=== PATIENT | female | born 1990 | race Caucasian/White ===

== ENCOUNTER → 2024-11-29 11:45 | Outpatient (BNVA) | payer OTHER, SELFPAY | PROVIDERS: Referring Provider Family Medicine; Visit Provider Internal Medicine Rheumatology | DX: M47.817 Spondylosis without myelopathy or radiculopathy, lumbosacral region (principal); M25.50 Pain in unspecified joint; M25.559 Pain in unspecified hip | CPT/HCPCS: 36415; 72100; 72170; 80076; 81001; 82306; 82565; 82570; 83520; 84156; 85025; 85651; 86140; 86200; 86431; 86480; 86704; 86803; 86812; 87340 ==

== ENCOUNTER 2024-12-26 10:49 | Outpatient (CLI) | payer OTHER, SELFPAY ==
--- NOTE | 2024-12-26 11:00 | MR_ITS ---
WS: [id number] MRI LUMBAR SPINE NONCONTRAST HISTORY: M54.16 - Radiculopathy, lumbar region COMPARISON: None available. TECHNIQUE: Sagittal and axial multisequence imaging is submitted. Normal lumbar alignment with no compression fractures or marrow edema. Disc spaces and vertebral body heights are well-preserved. Conus terminates normally at L1-2 disc level. L1-L2: Normal. L2-L3: No stenosis. No disc protrusion. RIGHT foraminal nerve root sleeve diverticulum. L3-L4: No stenosis or disc protrusion. Very small bilateral nerve root sleeve diverticula. L4-L5: Mild disc bulging with ligamentum flavum and facet arthritis. There is mild disc encroachment upon the traversing L5 nerve roots. Mild facet arthritis. Mild subarticular recess narrowing. L5-S1: Mild annular disc bulge with a tiny central disc protrusion. There is mild disc contact on the S1 nerve roots, bilateral. No foraminal stenosis. Paravertebral soft tissues are negative. MR/MR lumbar spine wo con* [id number] IMPRESSION: 1. No high-grade central or foraminal stenosis. 2. L4-5: Mild disc encroachment upon the traversing L5 nerve roots with narrow ing of the subarticular recesses. 3. L5-S1: Small central disc protrusion with contact on the S1 nerve roots. No stenosis.
== END 2024-12-26 10:50 | disposition home or self-care (01) ==
PROVIDERS: PCP Family Medicine; Visit Provider Anesthesiology Pain Medicine
DX: M54.16 Radiculopathy, lumbar region (principal); M51.370 Other intervertebral disc degeneration, lumbosacral region with discogenic back pain only
CPT/HCPCS: 72148

== ENCOUNTER → 2025-01-14 09:05 | Outpatient (BNVA) | payer OTHER, SELFPAY | PROVIDERS: PCP Family Medicine; Visit Provider Anesthesiology Pain Medicine | DX: Z79.899 Other long term (current) drug therapy (principal) | CPT/HCPCS: 36415; 80076; 82565; 85025; 85651; 86140 ==

== ENCOUNTER 2025-02-05 09:26 | Emergency (ER) | payer OTHER, SELFPAY ==
--- OUTSIDE RECORDS SUMMARY | 2025-02-05 09:44 | XMS_ITS | Clinical Summary ---
Author Organization [facility] Address [address] Attn: Epic Prelude ADT CREPRADIP ALVARENGA [place]UCK [address] Care Team Providers Care Border Measurer And Cutter Name Role Phone Nader Zacarias MD Primary Care Provider [phone] Allergies Active Allergy Reactions Criticality Noted Date Comments Kiwi Hives,Swelling High 01/28/2009 Morphine Hives,Itching,Fever High 07/21/2018 Sulfamethoxazole-Trimethoprim Hives High 2020 Medications BIOTIN ORAL Take by mouth. Act yamilka docosahexaenoic acid/epa (FISH OIL ORAL) Take by mouth. Activ e oxyCODONE-acetam inophen (Percocet) 5-325 mg tabletIndication s:Acute pain of right shoulder Take 1 Tablet by mouth every 4 hours as needed for Pain, Mild or Pain, Moderate. Max Daily Amount: 6 Tablets 42 Tablet 07/20/2024 12:24 PM OFFICE TECHNOLOGY INSTRUCTOR 5 Active Additional Information Patient not taking.Reported on 11/23/2024 predniSONE (DELTASONE) 5 mg tabletIndication s:Other forms of systemic lupus erythematosus, unspecified organ involvement status (CMS/HCC) 20mg x3days, 15mg x3days, 10mg x3days, 5mg x3days 30 Tablet 5 Active Additional Information Patient not taking.Reported on 11/23/2024 Benlysta 200 mg/mL Auto-InjectorInd ications:Other forms of systemic lupus erythematosus, unspecified organ involvement status (CMS/HCC) INJECT 200MG UNDER THE SKIN EVERY 7 DAYS 12 mL 5 Active Active Problems Problem Noted Date Diagnosed Date Other forms of systemic lupus erythematosus 05/2021 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 Encounters Date Type Department Care Team Description 01/16/2025 External Device Data [facility] ABSTRACTION Provider, Abstract 01/08/2025 External Device Data [facility] ABSTRACTION Provider, Abstract 01/02/2025 External Device Data [facility] ABSTRACTION Provider, Abstract 11/27/2024 External Device Data [facility] ABSTRACTION Provider, Abstract 11/27/2024 External Device Data [facility] ABSTRACTION Provider, Abstract 11/27/2024 External Device Data [facility] ABSTRACTION Provider, Abstract 11/26/2024 Results Follow-Up [address] [address] Gena Red FNP POC URINALYSIS DIPSTICK AUTOMATED, URINE CULTURE 11/26/2024 Orders Only [address] [phone] Gena Red FNP E-coli UTI (Primary Dx) 11/23/2024 12:20 PM CDT Office Visit [address] [phone] Gena Red FNP Urinary frequency (Primary Dx); Urinary tract infection with hematuria, site unspecified 11/13/2024 8:40 AM CDT Office Visit [address] [phone] Jay, Sally Bailon, PHYSICAL THERAPY PROFESSOR Atypical mole (Primary Dx); Acute mucoid otitis media of left ear 11/13/2024 [facility]ill [facility] [address] [place] [phone] Keli Carrizales PA Other forms of systemic lupus erythematosus, unspecified organ involvement status ([facility]) from Last 3 Months Immunizations Immunization Administration Dates Next Due (TDVAX)(7 YRS UP) TETANUS AN D DIPHTHERIA TOXOIDS, ADSORBED (2 LF OF TETANUS TOXOID AND 2 LF OF DIPHTHERIA TOXOID), 0.5ML (PF), IM 03/17/2004 Hepatitis B Vaccine 08/15/2001,03/09/2001,2000 Family History Medical History Relation Name Comments Healthy Brother 1 Healthy Brother 2 Healthy Daughter 1 Healthy Daughter 2 Diabetes Father Mukul Cancer Maternal Grandmother Crenesha Ovarian Cancer Maternal Grandmother Crenesha Depression Mother Jami Other Mother Jami spine is deteri orating Heart Disease Paternal Grandfather Mukul Healthy Paternal Grandmother Rajani Lung Cancer Paternal Grandmother Rajani Asthma Sister 1 Cera Healthy Sister 2 Relation Name Status Comments Brother 1 Alive Brother 2 Alive Daughter 1 Alive Daughter 2 Alive Father Mukul Maternal Grandfather Maternal Grandmother Karine Mother Jami Alive Paternal Grandfather Mukul Paternal Grandmother Rajani Alive Sister 1 Cera Alive Sister 2 Alive Social History Tobacco Use Types Packs/Day Years Used Date Smoking Tobacco: Former Cigarettes 1 10 0 06/19/2008 - 06/19/2018 Smokeless Tobacco: Never Tobacco Cessation:Counseling Given: No Comments:1 cig a day, switched to vape Alcohol Use Standard Drinks/Week Comments Not Currently 0 (1 standard drink = 0.6 oz pur e alcohol) Feeling Safe Answer Date Recorded Are you in a relationship wi th someone who hurts you emotionally and/or physically? No 07/20/2024 Comments No Sex and Gender Information Value Date Recorded Sex Assigned at Not on file Legal Sex Female 3:06 PM OFFICE TECHNOLOGY INSTRUCTOR Gender Identity Not on file Sexual Orientation Not on file Last Filed Vital Signs Vital Sign Reading Time Taken Comments Blood Pressure 118/59 11/23/2024 12:08 PM CDT Pulse 66 11/23/2024 12:08 PM CDT Temperature 36.8 C (98.2 F) 11/23/2024 12:08 PM CDT Respiratory Rate 16 11/23/2024 12:0 8 PM CDT Oxygen Saturation 99% 11/23/2024 12: 08 PM CDT Inhaled Oxygen Concentration - - Weight 66.6 kg (146 lb 12.8 oz) 025 12:08 PM CDT Height 170.2 cm (5' 7 ) 11/23/2024 12:0 8 PM CDT Body Mass Index 22.99 11/23/2024 12:08 PM CDT Plan of Treatment Upcoming Encounters Date Type Department Care Team (Late st Contact Info) Description 02/22/2025 3:00 PM CDT Office Visit [facility] [address] [place] [phone] Shu Barrett, [facility] [address] [place] [address] Health Maintenance Due Date Last Done Comments DTAP/TDAP/TD VACCINES (2 - Tdap) 03/18/2004 03/17/20 04 HPV/Cotest (21-29) 2009 HPV VACCINES (1 - 3-dose SCDM series) 08/03/2015 CERVICAL CANCER SCREENING 2018 HPV/Cotest (30-65) 2018 PAP SMEAR 2018 02/04/2009 Preventative Visit- Commercial 05/30/2024 INFLUENZA VACCINE (#1) 2024 , 02/07/2024, 08/28/2021 HEPATITIS B VACCINES Completed 08/15/2001, 03/09/2001, 01/17/2001 Medical Devices Implanted Type Area Model Dresser Device Identifier Shelf Expiration Date Model / Serial / Lot [place] Lnt Impl Sys 7.75mm Bc Swiveloc [id number] - [id number] Implanted:Qty: 1 on 07/20/2024 by Darrian Castro MD at [facility] [place] Right: Shoulder [employer] [id number] 02/27/2028 [id number] / / [id number] Procedures Procedure Name Priority Date/Time Associated Diagnosis Comments POC URINALYSIS DIPSTICK AUTOMATED Routine 11/23/2024 1:28 PM CDT Urinary frequency URINE CULTURE Routine 11/23/2024 1:11 PM CDT Urinary tract infection with hematuria, site unspecified from Last 3 Months Results * (ABNORMAL) POC URINALYSIS DIPSTICK AUTOMATED (11/23/2024 1:28 PM CDT) COLOR UA POC [place](A) Pale to Dark Yellow [facility] CLARITY UA POC Turbid(A) Clear, Other [facility] GLUCOSE UA POC Negative Negative, Normal [facility] BILIRUBIN UA POC Negative Negative [facility] UA POC Negative Negative [facility] SPECIFIC GRAVITY UA POC 1.025 1.000 - 1.030 [facility] BLOOD UA POC 3+(A) Negative [facility] UA POC 6.5 5.0 - 8.0 [facility] PROTEIN UA POC 2+(A) Negative [facility] UROBILINOGEN UA POC 0.2 <2.0 mg/dL [facility] NITRITE UA POC Positive(A) Negative [facility] LEUKOCYTE ESTERASE UA POC 3+(A) Negative [facility] KIT LOT NUMBER POC [id number] [facility] KIT EXP DATE POC 05/29/2025 [facility] Urine 11/23/2024 1:28 PM CDT Gena Red PHYSICAL THERAPY PROFESSOR POINT OF CARE TESTING Final Result [facility] CLIA# [id number] [address] [address] * (ABNORMAL) URINE CULTURE (11/23/2024 1:11 PM CDT) URINE CULTURE SEE NOTE(A) [facility] Comment: CULTURE, URINE, ROUTINE Micro Number: [id number] Test Status: Final Specimen Source: Urine, clean catch Specimen Quality: Adequate Result: Greater than 100,000 CFU/mL of Escherichia coli E.coli INT RAQUEL AMOX/CLAVULANATE S 8 AMP/SULBACTAM I 16 CEFAZOLIN NR <=4 2 CEFEPIME S <=0.12 CEFTAZIDIME S <=1 CEFTRIAXONE S <=0.25 CIPROFLOXACIN I 0.5 GENTAMICIN S <=1 IMIPENEM S <=0.25 LEVOFLOXACIN I 1 MEROPENEM S <=0.25 NITROFURANTOIN S <=16 PIP/TAZOBACTAM S <=4 TRIMETHOPRIM/SULFA S <=20 S = Susceptible I = Intermediate R = Resistant NS = Not susceptible SDD = Susceptible Dose Dependent * = Not Tested NR = Not Reported NN = See Therapy Comments THERAPY COMMENTS Note 1: For infections other than uncomplicated UTI caused by E. coli, K. pneumoniae or P. mirabilis: Cefazolin is resistant if RAQUEL > or = 8 mcg/mL. (Distinguishing susceptible versus intermediate for isolates with RAQUEL < or = 4 mcg/mL requires additional testing.) Note 2: For uncomplicated UTI caused by E. coli, K. pneumoniae or P. mirabilis: Cefazolin is susceptible if RAQUEL <32 mcg/mL and predicts susceptible to the oral agents cefaclor, cefdinir, cefpodoxime, cefprozil, cefuroxime, cephalexin and loracarbef. Test Performed at: [facility] [address] [place] [address] Peng Miguel MD Urine URINE SPECIMEN OBTAINED BY CLEAN CATCH PROCEDURE / Unknown 11/23/2024 1:11 PM CDT 11/24/2024 1:31 AM CDT Gena Red [facility] MICROBIOLOGY - GENERAL GUDELIA SALES Final Result [facility] [phone] [facility] [address] [place] [address] from Last 3 Months Insurance MED PAY O RX [employer] RX Member Subscriber Plan / Payer (Ef fective for All Dates) Name:Nida Jenkinsle Relation to Subscriber:Self Name:GregoryNida jacobo Payer ID:Not on file Group ID:Not on file Type:RX Commercial Address: [address] Advance Directives For more information, please contact: [phone] * Full Code (Latest Code Status on File) Date Activated Date Inactivated Comments 07/20/2024 8:19 AM 07/20/2024 3:21 PM Care Teams Border Measurer And Cutter Relationship Specialty Start Date End Date Nader Zacarias MD [address] [facility] [address] [place] [phone] PCP - General Family Practice 07/21/18
[2025-02-05 09:49] VITALS: BP 121/89; PULSE 77; RESP 20; TEMP 36.7; O2SAT 94
--- NOTE | 2025-02-05 09:53 | W.ED.URI ---
HPI - URI/Sore Throat General: Chief Complaint: Upper Respiratory Infection Stated Complaint: sore throat Time Seen by Provider: 02/05/25 09:52 History of Present Illness: 34-year-old female presents emergency room complaining of sore throat productive cough for the last 2 weeks. She reported low-grade fever as well cough is productive of discolored mucus. Patient has a history of lupus and is on Benlysta. She has not been able to see her primary care doctor for it. She denies any chest pain or hemoptysis. Associated symptoms: Reports chills and fever(s); Deny abdominal pain or chest pain Related Data Home Medications ?Medication ?Instructions ?Recorded ?Confirmed belimumab [Benlysta] SUBCUT .Q7days 11/29/24 02/05/25 Previous Rx's ?Medication ?Instructions ?Recorded pilocarpine HCl 5 mg tablet 5 mg PO TID #90 tabs 11/29/24 pregabalin 100 mg capsule (Lyrica) 100 mg PO BID #60 caps 11/29/24 folic acid 1 mg tablet 1 mg PO DAILY #60 tabs 12/06/24 methotrexate sodium 25 mg/mL 15 mg (0.6 mL) SUBCUT .Q7days #10 01/07/25 injection solution mL prednisone 5 mg tablet 5 mg PO DAILY #90 tabs 01/07/25 albuterol sulfate 90 mcg/actuation 2 inh inhalation Q4H PRN shortness 02/05/25 aerosol inhaler of breath or wheezing #18 grams levofloxacin 750 mg tablet 750 mg PO DAILY 7 days #7 tabs 02/05/25 Allergies Allergy/AdvReac Type Severity Reaction Status Date / Time Opioids - Morphine Analogues Allergy Intermediate Hives and Verified 02/05/25 08:56 itching sulfamethoxazole (From Allergy Intermediate ADR-Itching Verified 02/05/25 08:56 Bactrim) and hives trimethoprim (From Bactrim) Allergy Intermediate ADR-Itching Verified 02/05/25 08:56 and hives kiwi Allergy Unknown hives and Verified 02/05/25 08:56 throat swell as child Review of Systems Const: Reports: fever(s), chills and body aches Card: Denies: chest pain Resp: Reports: dyspnea, productive cough and chest congestion GI: Denies: abdominal pain : Denies: dysuria, urinary frequency or urinary urgency Musc: Denies: neck pain or back pain Skin/Breast: Denies: rash PFSH ED PFSH: Medical History Immunization counseling High risk medication use SLE (systemic lupus erythematosus related syndrome) Fibromyalgia Raynauds phenomenon Skin lesion Abdominal adhesions 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 S/P LEEP (loop electrosurgical excision procedure) History of shoulder surgery Right shoulder repair flap repair Family History Other Cancer Chronic kidney disease (CKD) Diabetes Heart disease Hypertension Lupus (systemic lupus erythematosus) Migraines Denies family history of Rheumatoid arthritis Osteoporosis Stroke Social History Smoking and tobacco/nicotine status: current every day tobacco/nicotine user cigarettes Packs smoked per day: 1 Years cigarettes smoked: 10 Alcohol intake: never Physical Exam Const: COMMON NORMALS: no acute distress GENERAL APPEARANCE: cooperative and comfortable ORIENTATION/CONSCIOUSNESS: Yes awake, Yes oriented to person, Yes oriented to place and Yes oriented to time HENMT: COMMON NORMALS: normocephalic, atraumatic and hearing grossly normal bilaterally HEAD & SCALP: normocephalic and atraumatic Resp: COMMON NORMALS: normal respiratory effort, No retractions and No use of accessory muscles AUSCULTATION: rhonchi right lower Cardio: COMMON NORMALS: regular rate, regular rhythm and No murmurs present (Cardio) RATE: regular rate RHYTHM: regular rhythm GI: COMMON NORMALS: Soft to palpation and No hepatosplenomegaly present AUSCULTATION: Yes normoactive bowel sounds PALPATION: Yes Soft to palpation, No Tenderness to palpation present (GI), No Guarding due to palpation present (GI) and Yes No hepatosplenomegaly present Extremity: COMMON NORMALS: normal to inspection, capillary refill normal, no clubbing, cyanosis or edema, no calf tenderness and no pedal edema Neuro: SENSORIUM/ORIENTATION: Yes oriented to person, Yes oriented to place and Yes oriented to time Skin: COMMON NORMALS: no rashes or lesions noted GENERAL SKIN EXAM: no rashes or lesions noted Course Vital Signs: Vital signs: Vital Signs Temperature 98.1 F 02/05/25 09:49 Pulse Rate 71 02/05/25 10:22 Respiratory Rate 20 H 02/05/25 09:49 Blood Pressure 119/92 02/05/25 10:22 Pulse Oximetry 96 02/05/25 10:22 Oxygen Delivery Me thod Room Air 02/05/25 09:49 MDM - URI/Sore Throat Medical Decision Making Based on length of time she has had productive cough we will go and start on Levaquin 750 p.o. daily felt that there may be a little bit increased markings at the right base consistent with where they hear the adventitious sounds on exam. Also gave her albuterol to use as needed if not improving follow-up with primary care if worsens return to the emergency room. Medical Records I reviewed the patient's medical records. Lab Data Radiology Impressions Chest X-Ray 02/05/25 09:59 Impression: Negative chest. All radiology interpretation(s) finalized by discharge Discharge Plan Discharge Patient Disposition: Home Clinical Impression: Pneumonia Condition: Stable Prescriptions: New albuterol sulfate 90 mcg/actuation HFA aerosol inhaler 2 inh INHALATION Q4H PRN (Reason: shortness of breath or wheezing) Qty: 18 0RF levofloxacin 750 mg tablet 750 mg PO DAILY 7 Days Qty: 7 0RF No Action belimumab [Benlysta] SUBCUT .Q7days pilocarpine HCl 5 mg tablet 5 mg PO TID Qty: 90 3RF pregabalin [Lyrica] 100 mg capsule 100 mg PO BID Qty: 60 3RF folic acid 1 mg tablet 1 mg PO DAILY Qty: 60 2RF prednisone 5 mg tablet 5 mg PO DAILY Qty: 90 0RF methotrexate sodium 25 mg/mL solution 15 mg SUBCUT .Q7days Qty: 10 1RF Discharge Orders: Discharge ED (Routine); Ordered 02/05/25 Ordered By: Aaron Estrada Referrals: Nader Zacarias [Primary Care Provider, Family Practice] Discharge Diet: Usual diet Discharge Activity: Resume usual activity Patient Instructions: Opioid Safety, Pain Management, Patient Portal & Estrella Instructions Activity Restrictions/Additional Instructions: [facility]. It is very important that you follow up as instructed or that you return to the Emergency Department should you have concerns or if your condition changes or worsens in any way. Emergency department visits are focused on emergent conditions, in some cases you may require further evaluation on an outpatient basis. You are seen in the emergency room with complaint of productive cough for the last 2 weeks. Chest x-ray shows mild infiltrate at the right lower lung. Will start you on Levaquin 750 mg once daily for a week. Also recommend that he use albuterol as needed if not improving or worsening follow-up with your primary care doctor or return to the emergency room (Please note that included in your discharge packet is information concerning opioid safety and pain management. This information is given to all patients were discharged from the ER regardless of their discharge diagnosis or the medicines they usually take or are prescribed.) Print Language: Scottish Coding Level of Care Code ED Clinic Physician Director for Rogelio Hendricks
--- NOTE | 2025-02-05 09:59 | XR_ITS ---
WS: [id number] Portable AP upright chest, 02/05/2025 Clinical Data: dyspnea/cough Comparison: None. Findings: No nodules, masses or effusions are seen. The heart is normal. The pulmonary vascularity is not increased. No pneumonia or pneumothorax is seen. XR/XR chest 1V portable [id number] Impression: Negative chest.
[2025-02-05 10:22] VITALS: BP 119/92; PULSE 71; O2SAT 96
[2025-02-05 10:42] VITALS: BP 121/89; PULSE 79; O2SAT 95
== END 2025-02-05 10:43 | disposition home or self-care (01) ==
PROVIDERS: Emergency Provider Family Medicine; PCP Family Medicine
DX: J18.9 Pneumonia, unspecified organism (principal); F17.210 Nicotine dependence, cigarettes, uncomplicated
CPT/HCPCS: 71045; 99283

== ENCOUNTER → 2025-04-22 12:38 | Outpatient (BNVA) | payer OTHER, SELFPAY | PROVIDERS: PCP Family Medicine; Visit Provider Internal Medicine Rheumatology | DX: Z79.899 Other long term (current) drug therapy (principal) | CPT/HCPCS: 80076; 82565; 85025; 85651; 86140 ==